=== PATIENT | male | born 1955 | race Caucasian/White ===

== ENCOUNTER 2020-09-14 09:08 | Outpatient (RCR) | payer BC | END 2020-10-04 | disposition home or self-care (01) | PROVIDERS: ATTEND Neurological Surgery | DX: M48.062 Spinal stenosis, lumbar region with neurogenic claudication (principal); M54.2 Cervicalgia; Z98.1 Arthrodesis status ==

== ENCOUNTER 2021-03-11 08:53 | Outpatient (CLI) | payer BC ==
[~2021-03-11] VITALS: Ht 188 cm; Wt 101.0 kg
[2021-03-11 09:02] VITALS: BP 134/68
[2021-03-11] MEDS ORDERED: ACETAMINOPHEN 500 MG TAB (TYLENOL) PO PRN (09:15)
[2021-03-11] MEDS ORDERED: EPINEPHrine INJECTION 1 MG/ML AMP IM PRN (09:15)
[2021-03-11] MEDS ORDERED: ONDANSETRON 4 MG/2 ML (SDV) Z0FRAN IV PRN (09:15)
[2021-03-11] MEDS ORDERED: diphenhydrAMINE 50 MG/ML INJ (BENADRYL) IV PRN (09:15)
[2021-03-11] MEDS ORDERED: CASIRIVIMAB/IMDEVIMAB 1,200 MG in NS (IVPB) 50 ML IV ONE (09:15)
[2021-03-11 10:20] VITALS: BP 103/58
== END 2021-03-11 10:20 | disposition home or self-care (01) ==
LOC: INFUSION 08:53
PROVIDERS: ATTEND Family Medicine
DX: U07.1 COVID-19 (principal)

== ENCOUNTER → 2022-12-16 | Outpatient (RCR) | payer MEDICARE | PROVIDERS: ATTEND Physician Assistant | DX: S39.012D Strain of muscle, fascia and tendon of lower back, subsequent encounter (principal); S16.1XXD Strain of muscle, fascia and tendon at neck level, subsequent encounter; I10 Essential (primary) hypertension; Z98.1 Arthrodesis status ==

== ENCOUNTER → 2023-01-15 | Outpatient (RCR) | payer MEDICARE | END | disposition home or self-care (01) | PROVIDERS: ATTEND Physician Assistant | DX: S39.012D Strain of muscle, fascia and tendon of lower back, subsequent encounter (principal); S16.1XXD Strain of muscle, fascia and tendon at neck level, subsequent encounter; Z98.1 Arthrodesis status ==